=== PATIENT | female | born 1965 | race Caucasian/White ===

== ENCOUNTER 2018-04-26 11:11 | Emergency (ER) | payer MEDICARE, OTHER ==
[2018-04-26 11:12] VITALS: BMI 24.7
[2018-04-26 11:28] VITALS: BP 117/77; PULSE 93; RESP 20; TEMP 98.6; O2SAT 97
[2018-04-26 11:56] LABS: HCG,QUALITATIVE URINE NEGATIVE (NEGATIVE)
[2018-04-26 11:58] LABS: SQUAMOUS EPITHIAL 5 /hpf (0-5); URINE BACTERIA OCC (<OCC); URINE BILIRUBIN 2+ (NEGATIVE); URINE BLOOD NEGATIVE (NEGATIVE); URINE CLARITY Hazy (Clear); URINE COLOR Yellow (YELLOW); URINE GLUCOSE (UA) NORMAL (Normal); URINE LEUKOCYTE ESTERASE TRACE Leu/uL (Negative); URINE PROTEIN NEGATIVE (NEGATIVE)
--- NOTE | 2018-04-26 12:23 | C.PDOC ---
History Of Present Illness 52-year-old female presents to the ED with complaints of intermittent dysuria ongoing for 1 month. Patient states she initially saw her PMD who prescribed course of antibiotics, which she finished without improvement. She then saw her OBGYN, was told she had a vaginal infection, and given metronidazole for 1 week. Patient reports she just finished that course of antibiotics and feels the same. She notes her urine appears dark in color. Symptoms are described as intermittent, and associated with occasional low back pain. Otherwise patient denies any fever, vaginal bleeding, discharge, or itching. Patient then returned to her PMD, who sent her for outpatient CT scan and ultrasound of the kidneys. She was instructed to follow up with GI specialist, but came here instead. Patient arrives to the ED with copies of the following imaging results, performed 2 days ago: 04/24/2018 CT Abd/Pelvis without contrast: Impression: 1. Status post cholecystectomy 2. 0.8 cm hepatic cyst 3. Probably small uterine fundal fibroid 4. Colonic diverticulosis, with no CT evidence of diverticulitis 04/24/2018 Renal Ultrasound: Impression: No sonographic abnormality in the kidneys. Time Seen by Provider: 04/26/18 11:33 Chief Complaint (Nursing): Female Genitourinary History Per: Patient History/Exam Limitations: no limitations Onset/Duration Of Symptoms: Intermittent Episodes Current Symptoms Are (Timing): Still Present Associated Symptoms: Urinary Symptoms Abnormal Vaginal Bleeding: No Past Medical History Reviewed: Historical Data, Nursing Documentation, Vital Signs Vital Signs: Last Vital Signs Temp 98.6 F 04/26/18 11:17 Pulse 93 H 04/26/18 11:17 Resp 20 04/26/18 11:17 BP 117/77 04/26/18 11:17 Pulse Ox 97 04/26/18 12:48 - Medical History PMH: Arthritis (RHEUMATOID), Gastritis, Rheumatoid Arthritis Denies: Colonic Polyps, Chronic Kidney Disease Surgical History: Cholecystectomy - [facility] Procedures ANESTH INJEC PERIPH NERV (11/06/13) COLONOSCOPY (09/01/14) EXC LES SOFT TISSUE NEC (11/06/13) INJECT STEROID (11/06/13) OTH BUNIONECT W SFT GINA (11/06/13) PERIPH NERVE INJECT NEC (11/06/13) Family History: States: Unknown Family Hx - Social History Hx Alcohol Use: No Hx Substance Use: No - Immunization History Hx Tetanus Toxoid Vaccination: No Hx Influenza Vaccination: No Hx Pneumococcal Vaccination: No Review Of Systems Except As Marked, All Systems Reviewed And Found Negative. Constitutional: Negative for: Fever, Chills Gastrointestinal: Negative for: Nausea, Vomiting, Abdominal Pain Genitourinary: Positive for: Dysuria. Negative for: Vaginal Discharge, Vaginal Bleeding, Other (itching) Skin: Negative for: Rash Neurological: Negative for: Weakness, Numbness Physical Exam - Physical Exam Appears: Well, Non-toxic, No Acute Distress Skin: Warm, Dry, No Rash Head: Atraumatic, Normacephalic Eye(s): bilateral: Normal Inspection Oral Mucosa: Moist Neck: Normal ROM Chest: Symmetrical Cardiovascular: Rhythm Regular, No Murmur Respiratory: Normal Breath Sounds, No Rales, No Rhonchi, No Wheezing Gastrointestinal/Abdominal: Soft, No Tenderness, No Distention, No Guarding Back: Normal Inspection, No CVA Tenderness, No Vertebral Tenderness Extremity: Bilateral: Atraumatic, Normal Color And Temperature, Normal ROM Neurological/Psych: Oriented x3, Normal Speech Gait: Steady ED Course And Treatment O2 Sat by Pulse Oximetry: 97 (RA) Pulse Ox Interpretation: Normal Medical Decision Making Medical Decision Making: Impression: Dysuria, Back pain Plan: --Urine culture --Urinalysis --Urine HCG Progress: Labs reviewed, urine shows trace leuk esterase and occasional bacteria. Patient given Pyridium 100 mg PO. Urine culture sent to lab. Will call patient with results. No further management in the ER. On re-evaluation, patient is resting comfortably, and is in no acute distress. Patient was instructed to follow up with urologist for further evaluation. Disposition Counseled Patient/Family Regarding: Studies Performed, Diagnosis, Need For Followup - Disposition Referrals: Garth Estrada Jr., MD [Staff Provider] - Buck Mantilla MD [Staff Provider] - Yancy Mantilla MD [Staff Provider] - Conrado Kaiser MD [Staff Provider] - Disposition: HOME/ ROUTINE Disposition Time: 12:35 Condition: STABLE Additional Instructions: Contina con tus medicamentos habituales Seguimiento con urlogo Instructions: Dysuria, Adult (DC) Forms: [employer] (Estonian) Print Language: TURKISH - POA Present On Arrival: None - Clinical Impression Clinical Impression: Dysuria - 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 - Scribe Statement The provider has reviewed the documentation as recorded by the Scribe (Seema Morales) All medical record entries made by the Scribe were at my direction and personally dictated by me. I have reviewed the chart and agree that the record accurately reflects my personal performance of the history, physical exam, medical decision making, and the department course for this patient. I have also personally directed, reviewed, and agree with the discharge instructions and disposition.
== END 2018-04-26 12:32 | disposition home or self-care (01) ==
LOC: C.ER 11:11
DX: R30.0 Dysuria (principal)